=== PATIENT | male | born 1980 | race Caucasian/White ===

== ENCOUNTER 2023-09-17 12:22 | Emergency (ER) | payer SELFPAY ==
[~2023-09-17] VITALS: Ht 170.2 cm; Wt 113.0 kg
[2023-09-17 12:30] VITALS: BP 137/86; O2SAT 97
[2023-09-17] MEDS ORDERED: ACETAMINOPHEN 325MG TABLET PO ONE (13:00)
[2023-09-17] MEDS ORDERED: TETANUS, DIPHTHERIA, PERTUSSIS VAC/PF 0.5ML (>10YR OLD) IM ONE (13:00)
[2023-09-17] MEDS ORDERED: BACITRACIN ZINC OINT UDPKT TOP ONE (13:00)
[2023-09-17] MEDS ORDERED: IBUP-2029 PO (13:49)
[2023-09-17] MEDS ORDERED: CEPH500C2 PO (13:49)
[2023-09-17 14:11] VITALS: PULSE 85; RESP 16; TEMP 99
== END 2023-09-17 14:26 | disposition home or self-care (01) ==
LOC: ER 12:22
DX: S81.832A Puncture wound without foreign body, left lower leg, initial encounter (principal); X58.XXXA Exposure to other specified factors, initial encounter; Y93.89 Activity, other specified; Y92.89 Other specified places as the place of occurrence of the external cause; Y99.8 Other external cause status
CPT/HCPCS: 73590; 90715; 90471; 99283; Z7610